=== PATIENT | female | born 1970 | race Two or more races ===

== ENCOUNTER 2022-01-30 17:06 | Inpatient (IN) | payer OTHER ==
[~2022-01-30] VITALS: Ht 167.6 cm; Wt 70.3 kg
--- NOTE | 2022-01-30 17:21 | NUR ---
PTE ALERTA Y ORIENTADA X3 REFIERE SER PACIENTE DE DR. LISA AGUIRRE QUIEN LA REFIERE A LUIS FERNANDO DE EMERGENCIA POR POSIBLE APENDICITIS. EL DR. AGUIRRE SUGIERE QUE SE LE REALIZE UN CT CON CONTRASTE ORAL.
--- NOTE | 2022-01-30 18:40 | NUR ---
FEMINA ALERTA Y ORIENTADA X3 EVALUADA POR DR JERRELL LIVEIEN [place] [facility]. SE EDUCA Y REFIERE ENTENDER. SE COLECTAN MUESTRAS DE ANTHONY BAJO MEDIDAS ASEPTICAS Y SE ADMINISTRAN MEDICAMENTOS.
== END 2022-02-01 12:41 | disposition home or self-care (01) | DRG 330 ==
LOC: ER 17:06 → SURH 23:34
PROVIDERS: Surgery; ADMIT Internal Medicine; ATTEND Internal Medicine
PROC: BW21ZZZ Computerized Tomography (CT Scan) of Abdomen and Pelvis (ICD-10-PCS; 2022-01-30)
PROC: 0DTJ4ZZ Resection of Appendix, Percutaneous Endoscopic Approach (ICD-10-PCS; 2022-01-31)
PROC: 0DQH4ZZ Repair Cecum, Percutaneous Endoscopic Approach (ICD-10-PCS; principal; 2022-01-31 15:00)
DX: K35.891 Other acute appendicitis without perforation, with gangrene (principal); K91.71 Accidental puncture and laceration of a digestive system organ or structure during a digestive system procedure; Z20.822 Contact with and (suspected) exposure to COVID-19